=== PATIENT | male | born 1955 | race Caucasian/White ===

== ENCOUNTER 2018-09-03 12:57 | Emergency (ER) | payer BC ==
[2018-09-03] MEDS ORDERED: SULFAMETH/TRIMETH DS 800/160 MG TABLET PO STA (13:34)
--- NOTE | 2018-09-03 13:38 | ED Physician Documentation ---
PD HPI LOWER EXT INJURY - Stated complaint Stated Complaint: L ANKLE WOUND - Chief complaint Chief Complaint: Ext Problem - History obtained from History obtained from: Patient, Family (daughter) - History of Present Illness PD HPI LOW EXT INJURY LOCATION: Left (This is a 63-year-old gentleman visiting family from [place]. He has a history of chronic venous insufficiency with vein stripping on the left, this all started after a remote traumatic injury. About 2 months ago he had a minor wound right medial ankle and it continued to grow despite wound care. He was seen here a few days ago and put on Keflex. He has not improved but has gotten worse either. He denies fevers or chills. There is some pedal edema with it.) Review of Systems Constitutional: denies: Fever, Chills Musculoskeletal: denies: Neck pain, Back pain Neurologic: reports: Reviewed and negative PD PAST MEDICAL HISTORY - Past Medical History Cardiovascular: None Neuro: Other HEENT: None Other Past Medical History: Traumatic peripheral vascular disease - Past Surgical History Past Surgical History: No - Present Medications Home Medications: Ambulatory Orders Medication Instructions Recorded Confirmed Cephalexin [Keflex] 500 mg PO Q6H #28 capsule 08/29/18 Ibuprofen 08/29/18 Mupirocin Calcium [Bactroban] 1 applic TP BID #15 cream..g. 08/29/18 Sulfamethoxazole/Trimethoprim 1 each PO BID #20 tablet 09/03/18 [Sulfamethoxazole-Tmp Ds Tablet] - Allergies Allergies/Adverse Reactions: Allergies Allergy/AdvReac Type Severity Reaction Status Date / Time piroxicam [From Feldene] Allergy Rash Verified 09/03/18 13:30 - Social History Does the pt smoke?: No Smoking Status: Never smoker Does the pt drink ETOH?: Yes Does the pt have substance abuse?: No - Immunizations Immunizations are current?: Yes - POLST Patient has POLST: No PD ED PE NORMAL - Vitals Vital signs reviewed: Yes - General General: Alert and oriented X 3, No acute distress - Extremities Extremities: Other (He has moderate bilateral pitting pedal edema left greater than right. There is a shallow grade 1 ulcer measuring about 2-1/2 x 1 cm to the medial malleolus of the left ankle with a granulating/purulent plate base which was sent for culture during examination. He has warm feet, pedal pulses were not palpable but they were dopplerable.) - Neuro Neuro: Alert and oriented X 3, Normal speech Results - Vitals Vitals: Vital Signs - 24 hr 09/03/18 13:14 Temperature 36.6 C Heart Rate 71 Respiratory 16 Rate Blood Pressure 128/74 O2 Saturation 96 Oxygen O2 Source Room air - Labs Labs: Microbiology 09/03/18 13:30 Wound Culture - Preliminary Ankle - Left Laboratory Tests 09/03/18 09/03/18 13:45 13:45 WBC 6.0 RBC 4.48 L Hgb 13.9 L Hct 40.5 L MCV 90.3 MCH 31.1 H MCHC 34.4 RDW 13.5 Plt Count 250 MPV 7.4 Neut # (Auto) 4.2 Lymph # (Auto) 1.0 L Gaines # (Auto) 0.5 Eos # (Auto) 0.3 Baso # (Auto) 0.0 Absolute Nucleated RBC 0.00 Nucleated RBC % 0.1 Sodium 139 Potassium 3.7 Chloride 106 Carbon Dioxide 25 Anion Gap 8.0 BUN 13 Creatinine 1.0 Estimated GFR (MDRD) 76 L Glucose 107 H Calcium 8.4 L Total Bilirubin 0.7 AST 16 ALT 15 Alkaline Phosphatase 49 Total Protein 6.7 Albumin 3.8 Globulin 2.9 Albumin/Globulin Ratio 1.3 Lipase 26 - Rads (name of study) LLE Sono Radiology: EMP read contemporaneously (no DVT) PD MEDICAL DECISION MAKING - ED course ED course: 63-year-old gentleman with grade 1 pressure ulcer of the left medial ankle. A swab was taken during exam he will be switched to Bactrim since Keflex has been ineffective. Lab work is basically unremarkable as is a DVT scan. He was given advice on wound care including Xeroform dressings and he is advised to follow-up with his primary care physician on return home for evaluation for potentially a wound care clinic Departure - Departure Disposition: 01 Home, Self Care Clinical Impression: Ankle ulcer Qualifiers: Laterality: left Non-pressure ulcer stage: limited to breakdown of skin Qualified Code(s): L97.321 - Non-pressure chronic ulcer of left ankle limited to breakdown of skin Condition: Good Record reviewed to determine appropriate education?: Yes Instructions: ED Pressure Injury Prescriptions: Sulfamethoxazole/Trimethoprim [Sulfamethoxazole-Tmp Ds Tablet] 1 each PO BID #20 tablet Comments: Dress it once a day as shown with Xeroform and a wrap. Follow-up with your physician on return home and consider wound care clinic. Return for new or worsening symptoms. We are performing a wound culture, the results should be done in 48-72 hours. If antibiotic change is necessary we will call you. Return if worse in the meantime, especially if you develop increased pain, fevers, cannot keep down the medication. Otherwise follow-up with your physician in approximately 2-3 days.
[2018-09-03 13:50] LABS: BASOPHILS % (AUTO) 0.7 %; EOSINOPHILS # (AUTO) 0.3 10^3/uL (0.0-0.7); EOSINOPHILS % (AUTO) 4.5 %; HGB - HEMOGLOBIN 13.9 g/dL (14.0-18.0); LYMPHOCYTES % (AUTO) 16.2 %; MEAN CORPUSCULAR HEMOGLOBIN 31.1 pg (27.0-31.0); MEAN CORPUSCULAR HGB CONC 34.4 g/dL (32.0-36.0); MEAN CORPUSCULAR VOLUME 90.3 fL (80.0-94.0); MEAN PLATELET VOLUME 7.4 fL (7.4-11.4); MONOCYTES # (AUTO) 0.5 10^3/uL (0.0-1.0); MONOCYTES % (AUTO) 8.2 %; NEUTROPHILS # (AUTO) 4.2 10^3/uL (1.5-6.6); NEUTROPHILS % (AUTO) 70.4 %; PLT - PLATELET COUNT 250 10^3/uL (130-450); RED BLOOD COUNT 4.48 10^6/uL (4.70-6.10); RED CELL DISTRIBUTION WIDTH 13.5 % (12.0-15.0)
[2018-09-03 14:03] LABS: ALBUMIN 3.8 g/dL (3.2-5.5); ALBUMIN/GLOBULIN RATIO 1.3 (1.0-2.2); BILIRUBIN,TOTAL 0.7 mg/dL (0.2-1.0); CALCIUM 8.4 mg/dL (8.5-10.3); TOTAL PROTEIN 6.7 g/dL (6.7-8.2)
--- NOTE | 2018-09-03 14:21 | Ultrasound Report ---
Reason: LLE swelling Procedure Date: 09/03/2018 Accession Number: [id number] / [id number] Procedure: US - Duplex Ext Veins Left CPT Code: FULL RESULT: EXAM: LEFT LOWER EXTREMITY VENOUS ULTRASOUND EXAM DATE: 09/03/2018 02:08 PM. CLINICAL HISTORY: LLE swelling. COMPARISON: None. TECHNIQUE: Real-time sonographic vascular imaging was performed by the benefits representative through the lower extremity utilizing both color-flow and Doppler spectral analysis. Multiple personnel representative static images were saved for review. FINDINGS: Common Femoral Vein (CFV): Normal. CFV-GSV Junction: Normal. Profunda Femoral Vein (PFV): Normal. Femoral Vein (FV) Prox: Normal. Femoral Vein (FV) Mid: Normal. Femoral Vein (FV) Dist: Normal. Popliteal Vein: Normal. Posterior Tibial Veins: Normal. Peroneal Veins: Normal. Contralateral Side CFV: Normal. Other: None. IMPRESSION: No evidence for deep venous thrombosis. [facility]
[2018-09-03 14:40] VITALS: BP 151/95
== END 2018-09-03 14:40 | disposition home or self-care (01) ==
LOC: ED 12:57
DX: L89.521 Pressure ulcer of left ankle, stage 1 (principal); I87.2 Venous insufficiency (chronic) (peripheral); I73.9 Peripheral vascular disease, unspecified
CPT/HCPCS: 36415; 80053; 83690; 85025; 87070; 87205; 93971; 99283; A9270